=== PATIENT | male | born 1985 | race Caucasian/White ===

== ENCOUNTER 2018-07-13 05:49 | Emergency (ER) | payer BC, OTHER ==
[2018-07-13] MEDS ORDERED: NS 1,000 ML IV ONE (06:11)
[2018-07-13 06:19] LABS: PLATELET COUNT 319 10^3/uL (150-400)
--- NOTE | 2018-07-13 06:57 | EDPHY ---
H & P Stated Complaint: Chest pain, L arm pain Time Seen by Provider: 07/13/18 06:56 HPI/ROS: CHIEF COMPLAINT: Left arm and chest discomfort HISTORY OF PRESENT ILLNESS: The patient presents to the ED after he woke early this morning with left arm and chest discomfort. The patient reportedly was sleeping in bed and woke up abruptly to his dog vomiting. The patient developed an ache in his left arm and chest. That has persisted although become somewhat intermittent over the past several hours. The patient denies any pleuritic chest pain. He denies any asymmetric calf pain or swelling. The patient does exercise frequently without chest pain or shortness of breath. The patient has no risk factors for coronary artery disease. REVIEW OF SYSTEMS: A comprehensive 10 point review of systems is otherwise negative aside from elements mentioned in the history of present illness. Source: Patient Exam Limitations: No limitations - Personal History Current Tetanus/Diphtheria Vaccine: Yes Current Tetanus Diphtheria and Acellular Pertussis (TDAP): Yes - Medical/Surgical History Hx Asthma: No Hx Chronic Respiratory Disease: No Hx Diabetes: No Hx Cardiac Disease: No Hx Renal Disease: No Hx Cirrhosis: No Hx Alcoholism: No Hx HIV/AIDS: No Hx Splenectomy or Spleen Trauma: No Other PMH: ADD - Social History Smoking Status: Never smoked - Physical Exam Exam: General Appearance: Alert, no distress Eyes: Pupils equal and round no pallor or injection ENT, Mouth: Mucous membranes moist Respiratory: There are no retractions, lungs are clear to auscultation Cardiovascular: Regular rate and rhythm Gastrointestinal: Abdomen is soft and nontender, no masses, bowel sounds normal Neurological: A&O, normal motor function, normal sensory exam, normal cranial nerves Skin: Warm and dry, no rashes Musculoskeletal: Neck is supple nontender Extremities: symmetrical, full range of motion Constitutional: Initial Vital Signs Temperature (C) 36.7 C 07/13/18 05:55 Heart Rate 56 L 07/13/18 05:55 Respiratory Rate 16 07/13/18 05:55 Blood Pressure 122/81 H 07/13/18 05:55 O2 Sat (%) 97 07/13/18 05:55 O2 Delivery Mode Room Air Allergies/Adverse Reactions: No Known Allergies Allergy (Unverified 07/13/18 05:55) Home Medications: Medication Instructions Recorded Dev 07/13/18 Medical Decision Making - Diagnostics EKG Interpretation: EKG: Complete interpretation has been separately recorded in the [facility] archive. Summary impression: Sinus rhythm, rate 55 Imaging Results: Chest x-ray AP: Images reviewed by myself, impression negative for cardiomegaly , pneumothorax or other acute abnormality. ED Course/Re-evaluation: The patient presents to the ED with atypical chest pain. The HEART score is zero. EKG is normal, troponin is normal. Interventions: Patient was given 15 mg of Toradol at 7:15 a.m. Re-evaluated the patient at 8 a.m. and he is currently pain-free. I have a low suspicion for acute coronary syndrome. The patient will be discharged home with customary aftercare instructions and return precautions. Differential Diagnosis: Differential diagnosis considered includes myofascial strain, pneumothorax, acute coronary syndrome, pericarditis - Data Points Laboratory Results: Laboratory Results 07/13/18 06:05 07/13/18 06:05 07/13/18 07/13/18 07/13/18 06:09 06:05 06:05 WBC 6.43 10^3/uL 10^3/uL (3.80-9.50) RBC 5.17 10^6/uL 10^6/uL (4.40-6.38) Hgb 15.7 g/dL g/dL (13.7-17.5) Hct 44.4 % % (40.0-51.0) MCV 85.9 fL fL (81.5-99.8) MCH 30.4 pg pg (27.9-34.1) MCHC 35.4 g/dL g/dL (32.4-36.7) RDW 12.2 % % (11.5-15.2) Plt Count 319 10^3/uL 10^3/uL (150-400) MPV 10.2 fL fL (8.7-11.7) Neut % (Auto) 40.9 % % (39.3-74.2) Lymph % (Auto) 47.9 % H % (15.0-45.0) Cook % (Auto) 8.2 % % (4.5-13.0) Eos % (Auto) 2.0 % % (0.6-7.6) Baso % (Auto) 0.8 % % (0.3-1.7) Nucleat RBC Rel Count 0.0 % % (0.0-0.2) Absolute Neuts (auto) 2.63 10^3/uL 10^3/uL (1.70-6.50) Absolute Lymphs (auto) 3.08 10^3/uL H 10^3/uL (1.00-3.00) Absolute Monos (auto) 0.53 10^3/uL 10^3/uL (0.30-0.80) Absolute Eos (auto) 0.13 10^3/uL 10^3/uL (0.03-0.40) Absolute Basos (auto) 0.05 10^3/uL 10^3/uL (0.02-0.10) Absolute Nucleated RBC 0.00 10^3/uL 10^3/uL (0-0.01) Immature Gran % 0.2 % % (0.0-1.1) Immature Gran # 0.01 10^3/uL 10^3/uL (0.00-0.10) Sodium 140 mEq/L mEq/L (135-145) Potassium 4.3 mEq/L mEq/L (3.3-5.0) Chloride 105 mEq/L mEq/L (97-110) Carbon Dioxide 27 mEq/l mEq/l (22-31) Anion Gap 8 mEq/L mEq/L (6-14) BUN 14 mg/dL mg/dL (7-23) Creatinine 1.0 mg/dL mg/dL (0.7-1.3) Estimated GFR > 60 Glucose 85 mg/dL mg/dL (70-100) Calcium 9.7 mg/dL mg/dL (8.5-10.4) POC Troponin I 0.00 ng/mL ng/mL (0.00-0.08) Medications Given: Discontinued Medications Sodium Chloride (Ns) 1,000 mls @ 0 mls/hr IV EDNOW ONE; Wide Open PRN Reason: Protocol Stop: 07/13/18 06:12 Last Admin: 07/13/18 06:22 Dose: 1,000 mls Ketorolac Tromethamine (Toradol) 15 mg IVP EDNOW ONE Stop: 07/13/18 07:05 Last Admin: 07/13/18 07:11 Dose: 15 mg Point of Care Test Results: Chemistry 07/13/18 06:09 POC Troponin I 0.00 ng/mL ng/mL (0.00-0.08) Departure - Departure Disposition: Home, Routine, Self-Care Clinical Impression: Chest pain Condition: Good Instructions: Noncardiac Chest Pain (ED) Additional Instructions: 1. Take Ibuprofen or Motrin 600 mg by mouth three times a day. 2. Return to the ED for any worsening chest pain, chest pain that is becoming exertional, difficulty breathing or other concerning symptoms. 3. Please follow-up with your primary care provider as needed. Referrals: Lizbeth Jeffers MD [Primary Care Provider] - As per Instructions
[2018-07-13] MEDS ORDERED: KETOROLAC 15 MG/1 ML SDV IVP ONE (07:04)
[2018-07-13 07:18] VITALS: BP 120/73
--- NOTE | 2018-07-13 07:36 | CPEKG ---
Test Reason : OPEN Blood Pressure : / mmHG Vent. Rate : 055 BPM Atrial Rate : 055 BPM P-R Int : 157 ms QRS Dur : 107 ms QT Int : 414 ms P-R-T Axes : 042 067 090 degrees QTc Int : 396 ms Sinus rhythm Confirmed by Jaden Rich ([id number]) on 07/13/2018 7:35:49 AM Referred By: Confirmed By:Jaden Rich
== END 2018-07-13 07:45 | disposition home or self-care (01) ==
DX: R07.9 Chest pain, unspecified (principal); E86.9 Volume depletion, unspecified
CPT/HCPCS: 84484-PO; 96374; J1885